=== PATIENT | female | born 1985 | race Caucasian/White ===

== ENCOUNTER 2018-03-16 11:49 | Outpatient (CLI) | payer OTHER ==
[~2018-03-16] VITALS: Ht 182.9 cm; Wt 103.6 kg
[2018-03-16 11:58] VITALS: BP 135/77
[2018-03-18] MEDS ORDERED: PREN-3 PO (10:31)
[2018-03-18] MEDS ORDERED: LORA10CA PO (10:35)
== END 2018-03-16 14:30 | disposition home or self-care (01) ==
LOC: LDOP 11:49
PROVIDERS: ATTEND Obstetrics & Gynecology
DX: O26.893 Other specified pregnancy related conditions, third trimester (principal); R10.9 Unspecified abdominal pain; Z3A.38 38 weeks gestation of pregnancy
CPT/HCPCS: 59025; 99211; G0463

== ENCOUNTER 2020-03-04 17:38 | Emergency (ER) | payer OTHER ==
[~2020-03-04] VITALS: Ht 182.9 cm; Wt 85.8 kg
[~2020-03-04 17:38] MED LIST: DOCU-131 PO; IBUP-1222 PO; LORA10CA PO; OXYC-302 PO; PREN-3 PO
[2020-03-04] MEDS ORDERED: SODIUM CHLORIDE FLUSH 10ML SYR IVF ONE (18:30)
[2020-03-04] MEDS ORDERED: ONDANSETRON 2MG/ML, 2ML IVPush ONE (18:30)
[2020-03-04] MEDS ORDERED: MORPHINE SULFATE 4 MG/ML, 1ML IVPush PRN (18:30)
[2020-03-04] MEDS ORDERED: MORPHINE SULFATE 4 MG/ML, 1ML ONE (18:33)
[2020-03-04] MEDS ORDERED: ONDANSETRON 2MG/ML, 2ML ONE (18:33)
[2020-03-04 18:39] LABS: BASOPHILS # (AUTO) 0.03 x10^3/uL (0-0.1); BASOPHILS % (AUTO) 0 % (0-1); EOSINOPHILS # (AUTO) 0.39 x10^3/uL (0-0.4); EOSINOPHILS % (AUTO) 4 % (1-7); LYMPHOCYTES # (AUTO) 1.62 x10^3/uL (1-3.4); LYMPHOCYTES % (AUTO) 16 % (22-44); MD NO; MEAN CORPUSCULAR HEMOGLOBIN 30.3 pg (27.0-34.8); MEAN CORPUSCULAR HGB CONC 33.6 g/dL (32.4-35.8); MEAN CORPUSCULAR VOLUME 90.2 fL (80-100); MEAN PLATELET VOLUME 8.6 fL (7.4-10.4); MONOCYTES # (AUTO) 0.57 x10^3/uL (0.2-0.8); MONOCYTES % (AUTO) 6 % (2-9); NEUTROPHILS # (AUTO) 7.29 x10^3/uL (1.8-6.8); NEUTROPHILS % (AUTO) 74 % (42-75); PLATELET COUNT 265 x10^3/uL (130-400); RED BLOOD COUNT 4.37 x10^6/uL (3.82-5.3); RED CELL DISTRIBUTION WIDTH 13.5 % (9.6-15.2)
--- NOTE | 2020-03-04 18:39 | NUR ---
PIV PLACED, LABS DRAWN WITH [employer]AL [employer] AT BEDSIDE. MEDS ADMIN PER SEP. PT TO US.
[2020-03-04 18:49] LABS: ALBUMIN 3.4 g/dL (3.4-5.0); ANION GAP 5 mmol/L (5-15); CALCIUM 8.7 mg/dL (8.5-10.1); CHLORIDE 109 mmol/L (98-107); CREATININE 0.68 mg/dL (0.55-1.02)
--- NOTE | 2020-03-04 19:30 | NUR ---
ALL RESULTS ARE BACK AT THIS TIME. CHART UP FOR RECHECK.
[2020-03-04] MEDS ORDERED: KETOROLAC 30 MG/1 ML ONE (19:34)
--- NOTE | 2020-03-04 19:50 | NUR ---
MEDS ADMIN PER SEP. THIS RN PRESENT WITH MD DURING PELVIC EXAM.
[2020-03-04 19:51] VITALS: BP 133/82
[2020-03-04] MEDS ORDERED: KETOROLAC 30 MG/1 ML IVPush ONE (20:00)
== END 2020-03-04 20:19 | disposition home or self-care (01) ==
LOC: ED 18:08
DX: O03.9 Complete or unspecified spontaneous abortion without complication (principal)
CPT/HCPCS: 36415; 76801; 80048; 82040; 84702; 85025; 86901; 96374; 96375; 99284; J1885; J2270; J2405

== ENCOUNTER 2020-12-29 17:30 | Emergency (ER) | payer OTHER ==
[~2020-12-29] VITALS: Ht 182.9 cm; Wt 87.9 kg
[~2020-12-29 17:30] MED LIST changes: -OXYC-302 PO; +OXYC1TAB14 PO
--- NOTE | 2020-12-29 17:55 | NUR ---
pt , spont 2019 d/t subchorionic hem, started feeling pressure and "gush" a couple hours ago, passed quarter sized clot. us showed good fhr and no issues. on ivf meds. still cramping, no contractions. as
[2020-12-29 18:15] LABS: BASOPHILS % (AUTO) 1 % (0-1); EOSINOPHILS % (AUTO) 2 % (1-7); LYMPHOCYTES % (AUTO) 28 % (22-44); MEAN CORPUSCULAR HEMOGLOBIN 31.4 pg (27.0-34.8); MEAN CORPUSCULAR HGB CONC 34.4 g/dL (32.4-35.8); MEAN PLATELET VOLUME 7.8 fL (7.4-10.4); MONOCYTES % (AUTO) 9 % (2-9); NEUTROPHILS % (AUTO) 61 % (42-75); PLATELET COUNT 308 x10^3/uL (130-400); RED BLOOD COUNT 4.37 x10^6/uL (3.82-5.3); RED CELL DISTRIBUTION WIDTH 13.2 % (9.6-15.2)
[2020-12-29 18:26] LABS: ALBUMIN 3.5 g/dL (3.4-5.0); ANION GAP 8 mmol/L (5-15); CALCIUM 8.8 mg/dL (8.5-10.1); CHLORIDE 107 mmol/L (98-107); CREATININE 0.71 mg/dL (0.55-1.02)
--- NOTE | 2020-12-29 18:30 | NUR ---
PT OFF UNIT FOR [facility]
[2020-12-29 19:32] VITALS: BP 124/69
== END 2020-12-29 19:35 | disposition home or self-care (01) ==
LOC: ED 19:10
DX: O20.0 Threatened abortion (principal); Z3A.01 Less than 8 weeks gestation of pregnancy
CPT/HCPCS: 36415; 76801; 80048; 82040; 84702; 85025; 86901; 99284